=== PATIENT | male | born 1995 | race Caucasian/White ===

== ENCOUNTER 2021-12-06 17:01 | Emergency (ER) | payer BC, OTHER ==
[~2021-12-06] VITALS: Ht 185.4 cm; Wt 60.0 kg
[2021-12-06 17:13] VITALS: BP 135/90
[2021-12-06] MEDS ORDERED: HYDR28CR14 TOP (18:04)
[2021-12-06] MEDS ORDERED: METH4TAB3 PO (18:04)
== END 2021-12-06 18:16 | disposition home or self-care (01) ==
LOC: ER 17:03
DX: S56.912A Strain of unspecified muscles, fascia and tendons at forearm level, left arm, initial encounter (principal); M79.632 Pain in left forearm; L23.7 Allergic contact dermatitis due to plants, except food; Z79.899 Other long term (current) drug therapy; X58.XXXA Exposure to other specified factors, initial encounter; Y93.89 Activity, other specified; Y92.89 Other specified places as the place of occurrence of the external cause; Y99.8 Other external cause status
CPT/HCPCS: 73090; 99283